=== PATIENT | male | born 1955 | race Caucasian/White ===

== ENCOUNTER 2017-10-11 15:23 | Emergency (ER) | payer OTHER ==
[2017-10-11] MEDS ORDERED: HYDROmorphone 1 MG/ML Syringe IVPUSH ONE (15:36)
[2017-10-11] MEDS ORDERED: Ondansetron 4 MG/2 ML SDV IVPUSH ONE (15:36)
[2017-10-11] MEDS ORDERED: Sodium Chloride 0.9% 10 ML Syringe FLUSH PRN (15:36)
[2017-10-11] MEDS ORDERED: Lidocaine 1% 50 ML MDV SUBCUT STA (16:07)
--- NOTE | 2017-10-11 16:39 | EDM.PDOC ---
ED HPI GENERAL MEDICAL PROBLEM - General Chief Complaint: Upper Extremity Injury/Pain Stated Complaint: Left hand injury Time Seen by Provider: 10/11/17 15:25 Source of Information: Reports: Patient, RN Notes Reviewed History Limitations: Reports: No Limitations - History of Present Illness INITIAL COMMENTS - FREE TEXT/NARRATIVE: 62 year old male presents to the ED with left hand pain and swelling. He suffered a crush type injury at work today. 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 He estimates that the force was 200-300 lbs. He has a hematoma and small abrasion to the dorsal aspect of his hand. His pain is severe. No numbness or tingling but he is having difficulty moving his index and middle finger. No additional injury. Tetanus is up to date. HE is not on blood thinners. Left Hand Pain Score (Numeric/FACES): 8 - Related Data Allergies Allergy/AdvReac Type Severity Reaction Status Date / Time No Known Allergies Allergy Verified 10/11/17 15:34 Home Meds: Home Meds Albuterol [Ventolin HFA] 2 puff INH Q4H PRN #1 inhaler 05/30/14 [Rx] Acetaminophen/HYDROcodone [[place] 325-5 MG] 1 - 2 tab PO Q6H PRN #20 tablet 10/11 [Rx] Losartan [Cozaar] 50 mg PO DAILY 10/11/17 [History] Metoprolol Succinate [Toprol XL] 25 mg PO DAILY 10/11/17 [History] Past Medical History Cardiovascular History: Reports: Hypertension Respiratory History: Reports: COPD Musculoskeletal History: Reports: Other (See Below) Other Musculoskeletal History: neck surgery Social & Family History - Tobacco Use Smoking Status *Q: Current Every Day Smoker Years of Tobacco use: 35 Packs/Tins Daily: 2 - Alcohol Use Days Per Week of Alcohol Use: 0 - Recreational Drug Use Recreational Drug Use: No Review of Systems - Review of Systems Review Of Systems: See Below Musculoskeletal: Reports: Hand Pain Skin: Reports: Other (hematoma, abrasion) Neurological: Reports: No Symptoms. Denies: Numbness, Tingling ED EXAM, GENERAL - Physical Exam Exam: See Below Exam Limited By: No Limitations General Appearance: Alert, Moderate Distress, Obese Extremities: Other (hematoma to dorsal aspect of left hand. He has a small skin tear to the dorsal aspect of his hand. Sensation is intact. Cap refill is intact to all 5 fingers. Radial/ulnar pulses 2+. He is able to move all fingers but ROM is limtied to index and middle fingers. ) Neurological: Alert, Oriented Skin Exam: Warm, Dry, Other (small skin tear as described ) ED TRAUMA EXTREMITY PROCEDURES - Splinting Left Upper Extremity Splint Site: left hand Pre-Procedure NV Status: Normal Post-Procedure NV Status: Normal Splint Material: Other (orthoglass ) Splint Design: Volar Applied & Form Fitted By: Provider Provider Post-Splint Application NV Check: NV Status Normal, Good Position Complications: No Course - Vital Signs Last Recorded V/S: Last Vital Signs Temp 98.2 F 10/11/17 15:27 Pulse 68 10/11/17 15:27 Resp 18 10/11/17 15:27 BP 180/104 H 10/11/17 15:27 Pulse Ox 97 10/11/17 15:27 - Orders/Labs/Meds Orders: Active Orders 24 hr Category Date Time Status Peripheral IV Care [RC] . DIRECTED Care 10/11/17 15:36 Active Peripheral IV Insertion Adult [OM.PC] Stat Oth 10/11/17 15:36 Ordered Meds: Medications Discontinued Medications Generic Name Dose Route Start Last Admin Trade Name Freq PRN Reason Stop Dose Admin Hydromorphone HCl 1 mg 10/11/17 15:36 10/11/17 15:55 Dilaudid IVPUSH 10/11/17 15:37 1 mg ONETIME ONE Administration Lidocaine HCl 50 ml 10/11/17 16:07 10/11/17 16:27 Xylocaine 1% SUBCUT 10/11/17 16:08 50 ml NOW STA Administration Ondansetron HCl 4 mg 10/11/17 15:36 10/11/17 15:53 Zofran IVPUSH 10/11/17 15:37 4 mg ONETIME ONE Administration Sodium Chloride 10 ml 10/11/17 15:36 10/11/17 15:57 Saline Flush FLUSH 10 ml ASDIRECTED PRN Administration Keep Vein Open - Re-Assessments/Exams Free Text/Narrative Re-Assessment/Exam: X-rays of left hand are negative for bony abnormality. Radiologist interpretation agrees. I discussed the patient with Dr. Bacon. The patient has significant pain to the dorsal aspect of the hand, due to the swelling and large hematoma. The hematoma takes up most of the dorsal aspect of his hand. Per recommendation from Dr. Bacon, I did inject a wheel of 0.5ml of lidocaine 1+ to proximal aspect of dorsal hand. I then used an 18g needle to evacuate the hematoma. I was able to aspirate 5ml of blood from the hematoma. Patient did have some improvement in pain after evacuation. Due to the large size of the hematoma, I offered one more aspiration but the patient declined. He was placed in a small volar splint and educated on supportive care. He was educated on s/s of infection. He was educated on return precautions. He was instructed to f/u with his PCP next week for recheck. Discharge instructions as documented. Departure - Departure Time of Disposition: 16:37 Disposition: Home, Self-Care 01 Condition: Good Clinical Impression: Traumatic hematoma of hand Qualifiers: Encounter type: initial encounter Laterality: left Qualified Code(s): S60.222A - Contusion of left hand, initial encounter - Discharge Information Prescriptions: Acetaminophen/HYDROcodone [[place] 325-5 MG] 1 - 2 tab PO Q6H PRN #20 tablet PRN Reason: Pain Instructions: Hematoma, [id number] Referrals: PCP,None [Primary Care Provider] - Forms: ED Department Discharge Additional Instructions: Rest, ice and elevate as much as possible Splint and wero wrap as tolerated Do not get the splint wet May remove the splint when pain has improved or if the splint becomes uncomfortable [place] 1-2 tabs every 4-6 hours as needed for pain Follow-up with [facility] next week for recheck Return to ER with worsening pain or additional concerns Wash skin wound with gentle soap and water twice a day and apply antibiotic ointment Follow-up in clinic or ER if you develop signs or symptoms of infection (redness , increasing swelling, fever, increased warmth) - My Orders Last 24 Hours: My Active Orders 10/11/17 15:36 Peripheral IV Care [RC] . DIRECTED Peripheral IV Insertion Adult [OM.PC] Stat - Assessment/Plan Last 24 Hours: My Active Orders 10/11/17 15:36 Peripheral IV Care [RC] . DIRECTED Peripheral IV Insertion Adult [OM.PC] Stat
--- NOTE | 2017-10-11 17:06 | CR ---
Left hand: Four views of the left hand were obtained. Comparison: No previous hand exam. Soft tissue swelling seen dorsally. No fracture, dislocation or other bony abnormality is seen. Impression: 1. Soft tissue swelling. No acute bony abnormality is identified on left hand exam. Diagnostic code #2
== END 2017-10-11 16:46 | disposition home or self-care (01) ==
LOC: JD.ED 15:23
DX: S61.412A Laceration without foreign body of left hand, initial encounter (principal); S60.222A Contusion of left hand, initial encounter; I10 Essential (primary) hypertension; F17.210 Nicotine dependence, cigarettes, uncomplicated; Z79.899 Other long term (current) drug therapy; W23.0XXA Caught, crushed, jammed, or pinched between moving objects, initial encounter; Y99.0 Civilian activity done for income or pay; Y92.219 Unspecified school as the place of occurrence of the external cause
CPT/HCPCS: 10160; 29125; 73130; 96374; 96375; 99284; J1170; J2405; J7050

== ENCOUNTER 2022-03-23 20:49 | Emergency (ER) | payer SELFPAY ==
[2022-03-23] MEDS ORDERED: Lidocaine 1% 10 ML MDV INJECT ONE (21:41)
[2022-03-23] MEDS ORDERED: Bupivacaine 0.5% 10 ML SDV INJECT ONE (21:41)
== END 2022-03-23 22:50 | disposition home or self-care (01) ==
LOC: JD.ED 20:49
DX: S63.250A Unspecified dislocation of right index finger, initial encounter (principal); S63.254A Unspecified dislocation of right ring finger, initial encounter; S00.83XA Contusion of other part of head, initial encounter; I10 Essential (primary) hypertension; J44.9 Chronic obstructive pulmonary disease, unspecified; Z79.899 Other long term (current) drug therapy; W23.1XXA Caught, crushed, jammed, or pinched between stationary objects, initial encounter; W22.09XA Striking against other stationary object, initial encounter
CPT/HCPCS: 28660; 73130; 99283; J3490